=== PATIENT | female | born 1990 | race Hispanic/Latino ===

== ENCOUNTER 2017-11-28 22:40 | Emergency (ER) | payer BC, MEDICAID, OTHER ==
[2017-11-28] MEDS ORDERED: SODIUM CHLORIDE 0.9% 1000ML 2,000 ML IV ONE (23:20)
[2017-11-28] MEDS ORDERED: ONDANSETRON HCL 4 MG/2 ML VIAL ONE (23:20)
[2017-11-28 23:24] LABS: BASOPHILS % (AUTO) 0.8 % (0.0-5.0); HEMATOCRIT 46.2 % (36-48); MEAN CORPUSCULAR HEMOGLOBIN 29.3 pg (27.0-33.0); MEAN CORPUSCULAR VOLUME 86.2 fL (79-99); MONOCYTES % (AUTO) 4.6 % (3.0-13.0); NEUTROPHILS % (AUTO) 48.6 % (40.0-77.0); PLATELET COUNT (AUTO) 240 K/uL (130-400); RED BLOOD CELL COUNT(AUTO) 5.36 MIL/uL (4.00-5.50); RED CELL DISTRIBUTION WIDTH 13.1 % (11.0-15.5); WHITE BLOOD COUNT (AUTO) 12.2 K/uL (4.8-10.8)
[2017-11-28 23:36] LABS: ALANINE AMINOTRANSFERASE 55 U/L (12-78); ALBUMIN 3.5 g/dL (3.5-5.0); ASPARTATE AMINOTRANSFERASE 37 U/L (10-37); BILIRUBIN,TOTAL 0.4 mg/dL (0.2-1.0); CARBON DIOXIDE 24 mmol/L (21-32); CHLORIDE 99 mmol/L (101-111); CREATININE 1.1 mg/dL (0.5-1.5); GLOMERULAR FILTR. RATE CALC 62 mL/min (>60); LIPASE 152 U/L (114-286); POTASSIUM 3.6 mmol/L (3.5-5.1); SODIUM SERUM 135 mmol/L (136-145); TOTAL PROTEIN, SERUM 7.4 g/dL (6.0-8.3); UREA NITROGEN, BLOOD 10 mg/dL (7-18)
[2017-11-28 23:42] LABS: GLUCOSE,RANDOM 449 mg/dL (70-105)
[2017-11-28 23:47] LABS: ACETONE,BLOOD NEGATIVE (NEGATIVE)
[2017-11-29] MEDS ORDERED: POTASSIUM CHLORIDE 20 MEQ ERTAB PO ONE (00:11)
[2017-11-29] MEDS ORDERED: INSULIN HUMULIN R 100 UNIT/ML 3ML ONE (00:12)
== END 2017-11-29 02:20 | disposition home or self-care (01) ==
LOC: EDH 22:40
DX: E11.65 Type 2 diabetes mellitus with hyperglycemia (principal); E86.0 Dehydration; Z98.890 Other specified postprocedural states
CPT/HCPCS: 36415; 80053; 82009; 82948 ×2; 83690; 85025; 96361; 96374; 96375; 99284; J1815; J2405; J7030

== ENCOUNTER 2018-09-04 09:28 | Emergency (ER) | payer BC ==
[2018-09-04 09:55] LABS: APPEARANCE,URINE Clear (CLEAR); BILIRUBIN,URINE Negative (NEGATIVE); COLOR,URINE Yellow (YELLOW); GLUCOSE, URINE (UA) >=1000 mg/dL (NEGATIVE); KETONES,URINE Trace mg/dL (NEGATIVE); LEUKOCYTE ESTERASE ,URINE Negative (NEGATIVE); NITRATE,URINE Negative (NEGATIVE); OCCULT BLOOD,URINE Negative (NEGATIVE); PROTEIN,URINE Negative (NEGATIVE); UROBILINOGEN,URINE 0.2 mg/dL (0.2-1.0)
[2018-09-04 09:57] LABS: HCG,QUAL RESULT NEGATIVE (NEGATIVE)
[2018-09-04 10:07] LABS: BASOPHILS % (AUTO) 0.2 % (0.0-5.0); EOSINOPHILS % (AUTO) 2.7 % (0.0-8.0); HEMATOCRIT 48.2 % (36-48); LYMPHOCYTES % (AUTO) 42.1 % (21.0-51.0); MEAN CORPUSCULAR HEMOGLOBIN 29.5 pg (27.0-33.0); MEAN CORPUSCULAR HGB CONC 34.4 g/dL (32.0-36.0); MEAN CORPUSCULAR VOLUME 85.9 fL (79-99); MONOCYTES % (AUTO) 5.2 % (3.0-13.0); NEUTROPHILS % (AUTO) 49.8 % (40.0-77.0); NUCLEATED RED BLOOD CELLS 0.1 % (0.0-0.19); PLATELET COUNT (AUTO) 294 K/uL (130-400); RED BLOOD CELL COUNT(AUTO) 5.61 MIL/uL (4.00-5.50); RED CELL DISTRIBUTION WIDTH 13.2 % (11.0-15.5); WHITE BLOOD COUNT (AUTO) 10.2 K/uL (4.8-10.8)
[2018-09-04 10:23] LABS: CREATININE 0.8 mg/dL (0.5-1.5); POTASSIUM 3.6 mmol/L (3.5-5.1)
[2018-09-04 10:26] LABS: ALBUMIN 3.7 g/dL (3.5-5.0); BILIRUBIN,TOTAL 0.7 mg/dL (0.2-1.0); TOTAL PROTEIN, SERUM 7.9 g/dL (6.0-8.3)
[2018-09-04 10:28] LABS: BACTERIA,URINE Rare /HPF (None Seen); RBC,URINE 0-1 /HPF (0-1); WBC,URINE 0-1 /HPF (0-1)
== END 2018-09-04 15:23 | disposition home or self-care (01) ==
LOC: EDH 09:28
DX: R10.31 Right lower quadrant pain (principal); R32 Unspecified urinary incontinence; R11.0 Nausea; E11.9 Type 2 diabetes mellitus without complications; Z98.890 Other specified postprocedural states
CPT/HCPCS: 36415; 74176; 76705; 76856; 80053; 81001; 81025; 82150; 83690; 85025

== ENCOUNTER 2019-09-17 15:21 | Emergency (ER) | payer BC ==
[2019-09-17 17:04] LABS: RAPID GROUP A STREP NEGATIVE (NEGATIVE)
[2019-09-17 18:22] LABS: APPEARANCE,URINE Clear (CLEAR); BILIRUBIN,URINE Negative (NEGATIVE); COLOR,URINE Yellow (YELLOW); GLUCOSE, URINE (UA) Negative (NEGATIVE); KETONES,URINE Trace mg/dL (NEGATIVE); LEUKOCYTE ESTERASE ,URINE Negative (NEGATIVE); NITRATE,URINE Negative (NEGATIVE); OCCULT BLOOD,URINE Negative (NEGATIVE); PROTEIN,URINE Negative (NEGATIVE)
[2019-09-17 18:25] LABS: HCG,QUAL RESULT POSITIVE (NEGATIVE)
[2019-09-17] MEDS ORDERED: SODIUM CHLORIDE 0.9% 1000ML 1,000 ML IV ONE (18:59)
[2019-09-17 19:08] LABS: BASOPHILS % (AUTO) 0.4 % (0.0-5.0); EOSINOPHILS % (AUTO) 1.9 % (0.0-8.0); HEMATOCRIT 38.7 % (36-48); LYMPHOCYTES % (AUTO) 36.5 % (21.0-51.0); MEAN CORPUSCULAR HEMOGLOBIN 28.6 pg (27.0-33.0); MEAN CORPUSCULAR HGB CONC 33.7 g/dL (32.0-36.0); MEAN CORPUSCULAR VOLUME 84.6 fL (79-99); MONOCYTES % (AUTO) 4.7 % (3.0-13.0); NEUTROPHILS % (AUTO) 56.5 % (40.0-77.0); PLATELET COUNT (AUTO) 336 K/uL (130-400); RED BLOOD CELL COUNT(AUTO) 4.58 MIL/uL (4.00-5.50); WHITE BLOOD COUNT (AUTO) 10.4 K/uL (4.8-10.8)
[2019-09-17 19:18] LABS: CREATININE 0.6 mg/dL (0.5-1.5)
== END 2019-09-17 19:53 | disposition home or self-care (01) ==
LOC: EDH 15:21
DX: O99.281 Endocrine, nutritional and metabolic diseases complicating pregnancy, first trimester (principal); E86.9 Volume depletion, unspecified; E11.9 Type 2 diabetes mellitus without complications; Z3A.10 10 weeks gestation of pregnancy
CPT/HCPCS: 36415; 80048; 81003; 81025; 85025; 87804 ×2; 87880; 96360; 99285; J7030

== ENCOUNTER 2020-01-23 21:55 | Observation (INO) | payer BC ==
[~2020-01-23] VITALS: Ht 166.4 cm; Wt 95.3 kg
[2020-01-23 22:52] LABS: BILIRUBIN,URINE Negative (NEGATIVE); COLOR,URINE Yellow (YELLOW); GLUCOSE, URINE (UA) Negative (NEGATIVE); KETONES,URINE Negative (NEGATIVE); LEUKOCYTE ESTERASE ,URINE Negative (NEGATIVE); NITRATE,URINE Negative (NEGATIVE); OCCULT BLOOD,URINE Negative (NEGATIVE); PH,URINE 6.5 (5.0-8.0); PROTEIN,URINE Negative (NEGATIVE)
[2020-01-23 23:12] LABS: APPEARANCE,URINE CLEAR (CLEAR)
[2020-01-24 00:15] LABS: MEAN CORPUSCULAR HGB CONC 32.2 g/dL (32.0-36.0); MEAN CORPUSCULAR VOLUME 87.1 fL (79-99); PLATELET COUNT (AUTO) 271 K/uL (130-400); RED BLOOD CELL COUNT(AUTO) 4.25 MIL/uL (4.00-5.50); RED CELL DISTRIBUTION WIDTH 13.9 % (11.0-15.5); WHITE BLOOD COUNT (AUTO) 13.1 K/uL (4.8-10.8)
[2020-01-24 00:30] LABS: INR 0.94 (0.85-1.15); PARTIAL THROMBOPLASTIN TIME 27.9 SEC (26.3-35.5); PROTHROMBIN TIME 10.2 SEC (9.6-11.6)
[2020-01-24 00:33] LABS: PLATELET COUNT (AUTO) 271 K/uL (130-400)
[2020-01-24 01:43] LABS: D-DIMER 418 ng/mL (0-500)
== END 2020-01-24 02:03 | disposition home or self-care (01) ==
LOC: EDH 21:55 → LDH 21:56
PROVIDERS: ADMIT Specialist; ATTEND Specialist
DX: O9A.213 Injury, poisoning and certain other consequences of external causes complicating pregnancy, third trimester (principal); R10.9 Unspecified abdominal pain; Z3A.28 28 weeks gestation of pregnancy; W21.05XA Struck by basketball, initial encounter; Y93.89 Activity, other specified; Y92.89 Other specified places as the place of occurrence of the external cause; Y99.8 Other external cause status
CPT/HCPCS: 36415; 59025; 76805; 81003; 85027; 85378; 85384; 85610; 85730; 86850; 86900; 86901; 99284; G0378 ×3

== ENCOUNTER 2020-03-14 19:17 | Observation (INO) | payer BC ==
[~2020-03-14] VITALS: Ht 167.6 cm; Wt 97.5 kg
[2020-03-14 20:22] LABS: APPEARANCE,URINE CLEAR (CLEAR); BILIRUBIN,URINE NEGATIVE (NEGATIVE); COLOR,URINE YELLOW (YELLOW); GLUCOSE, URINE (UA) NEGATIVE (NEGATIVE); KETONES,URINE 15 mg/dL (NEGATIVE); LEUKOCYTE ESTERASE ,URINE NEGATIVE (NEGATIVE); NITRATE,URINE NEGATIVE (NEGATIVE); OCCULT BLOOD,URINE NEGATIVE (NEGATIVE); PROTEIN,URINE NEGATIVE (NEGATIVE); UROBILINOGEN,URINE 0.2 mg/dL (0.2-1.0)
[2020-03-14] MEDS ORDERED: ACETAMINOPHEN-CODEINE 300/30MG TAB ONE (20:46)
[2020-03-14] MEDS: LACTATED RINGERS 1000ML 1,000 ML IV PRN (20:58)
[2020-03-14] MEDS ORDERED: ACETAMINOPHEN-CODEINE 300/30MG TAB PO ONE (21:50)
[2020-03-14] MEDS ORDERED: TERBUTALINE SULFATE VIAL 1MG/ML SQ SCH (22:00)
[2020-03-14] MEDS ORDERED: TERBUTALINE SULFATE VIAL 1MG/ML SQ ONE (22:06)
[2020-03-15] MEDS: LACTATED RINGERS 1000ML 1,000 ML IV PRN (00:24)
== END 2020-03-15 07:53 | disposition home or self-care (01) ==
LOC: EDH 19:17 → LDH 20:06
PROVIDERS: ADMIT Specialist; ATTEND Specialist
DX: O62.9 Abnormality of forces of labor, unspecified (principal); O24.313 Unspecified pre-existing diabetes mellitus in pregnancy, third trimester; Z3A.36 36 weeks gestation of pregnancy
CPT/HCPCS: 81003; 82948; 96372; 99283; G0378 ×13; J3105; J7120 ×4; 96360; 96361

== ENCOUNTER 2020-03-23 10:00 | Inpatient (IN) | payer BC ==
[~2020-03-23] VITALS: Ht 165.1 cm; Wt 97.5 kg
[2020-03-27] MEDS ORDERED: LACTATED RINGERS 1000ML 1,000 ML IV SCH (07:45)
[2020-03-27] MEDS ORDERED: CEFAZOLIN SODIUM 1 GM VIAL IVP PRN (07:45)
[2020-03-27 08:27] LABS: HEMATOCRIT 42.6 % (36-48); MEAN CORPUSCULAR HEMOGLOBIN 27.5 pg (27.0-33.0); MEAN CORPUSCULAR HGB CONC 32.2 g/dL (32.0-36.0); MEAN CORPUSCULAR VOLUME 85.4 fL (79-99); RED BLOOD CELL COUNT(AUTO) 4.99 MIL/uL (4.00-5.50); WHITE BLOOD COUNT (AUTO) 11.4 K/uL (4.8-10.8)
[2020-03-27] MEDS ORDERED: ONDANSETRON HCL 4 MG/2 ML VIAL ONE (11:57)
[2020-03-27] MEDS ORDERED: OXYTOCIN 10 UNIT/1ML 10ML VIAL ONE (11:57)
[2020-03-27] MEDS ORDERED: FENTANYL CITRATE PF 50 MCG/1 ML 2ML VIAL ONE (11:58)
[2020-03-27] MEDS ORDERED: DURAMORPH PF1 MG/ML 10ML AMP IV ONE (11:58)
[2020-03-27] MEDS ORDERED: CEFAZOLIN SODIUM 1 GM VIAL IVP ONE (12:05)
[2020-03-27] MEDS ORDERED: SODIUM CHLORIDE 0.9% 10 ML VIAL IVP PRN (13:00)
[2020-03-27] MEDS ORDERED: PROMETHAZINE HCL 25 MG/ML 1ML AMPULE IM PRN (13:00)
[2020-03-27] MEDS ORDERED: OXYTOCIN-LR 20 UNITS/1000 ML 1,000 ML IV PRN (13:00)
[2020-03-27] MEDS ORDERED: MEPERIDINE-PF 75 MG/ML SYG IM PRN (13:00)
[2020-03-27] MEDS ORDERED: DiphenhydrAMINE HCL 50 MG/ML VIAL IVP PRN ×2 (13:45→17:15)
[2020-03-27] MEDS ORDERED: NALOXONE HCL 0.4 MG/1 ML ML IVP PRN ×4 (13:45→17:15)
[2020-03-27] MEDS ORDERED: ONDANSETRON HCL 4 MG/2 ML VIAL IVP PRN ×2 (13:45→17:15)
[2020-03-27] MEDS ORDERED: EPHEDRINE SULFATE 50 MG/ML AMPULE IVP PRN ×2 (13:45→17:15)
[2020-03-27 15:23] VITALS: BP 115/69
[2020-03-27] MEDS: INSULIN HUMULIN R 100 UNIT/ML 3ML SQ SCH ×2 (16:30→21:00)
[2020-03-27] MEDS: DEXTROSE 5 %-0.45 % NACL 1,000 ML IV PRN (19:05)
[2020-03-27] MEDS ORDERED: MEPERIDINE-PF 100 MG/ML SYG ONE (19:09)
[2020-03-27 19:25] VITALS: BP 117/67
--- NOTE | 2020-03-27 21:30 | NUR ---
STATUS HAS BEEN RESTING WELL. REPOSITIONED, ABD BINDER APPLIED, TOLERATED WELL Addendum: 03/28/20 at 0432 by MY DYER LVN Amended: Links added.
[2020-03-27 23:35] VITALS: BP 119/67
[2020-03-28] VITALS (8 sets, daily range): BP systolic 90–109; BP diastolic 54–68
[2020-03-28] MEDS: DEXTROSE 5 %-0.45 % NACL 1,000 ML IV PRN (01:14)
--- NOTE | 2020-03-28 05:30 | NUR ---
STATUS/MORROW CATHETERR DENIES NEED FOR PAIN MED, F/C REMOVED INTACT, TOLERATED WELL, BARB CARE GIVEN, ASSISTED PATIENT TO SIDE OF BED, DANGLED AT SIDE OF BED, TOLERATED WELL Addendum: 03/28/20 at 0551 by MY DYER LVN Amended: Links added.
--- NOTE | 2020-03-28 06:30 | NUR ---
status PATIENT VERBALIZED NEEDED TO VOID, WAS ASSISTED TO BR BY PCP, SHORTLY AFTER, PATIENT BECAME FAINT, AMMONIA USED, PATIENT ALERT, IV BOLUS GIVEN , V/S WNL, O2 SAT 100 %, ASSISTED BACK TO BED VIA W/C, ALERT, ORIENTED, V/S REMAINED WNL Addendum: 03/28/20 at 0751 by MY DYER LVN Amended: Links added.
[2020-03-28] MEDS ORDERED: AMMONIA 1 EA AMP IH ONE (06:40)
[2020-03-28 07:24] LABS: HEMATOCRIT 41.1 % (36-48); MEAN CORPUSCULAR HEMOGLOBIN 28.6 pg (27.0-33.0); MEAN CORPUSCULAR HGB CONC 32.6 g/dL (32.0-36.0); MEAN CORPUSCULAR VOLUME 87.8 fL (79-99); RED BLOOD CELL COUNT(AUTO) 4.68 MIL/uL (4.00-5.50); RED CELL DISTRIBUTION WIDTH 13.8 % (11.0-15.5)
[2020-03-28] MEDS: INSULIN HUMULIN R 100 UNIT/ML 3ML SQ SCH ×4 (07:30→21:00)
--- NOTE | 2020-03-28 07:49 | NUR ---
HOLD MORNING INSULIN AND RECHECK BLOOD SUGARS IN A FEW HOURS PER DR. FRANCES.
[2020-03-28] MEDS ORDERED: BISACODYL 10 MG SUPP.RECT RC PRN (08:00)
[2020-03-28] MEDS ORDERED: ACETAMINOPHEN EXTRA STRENGTH 500 MG TABLET PO PRN (08:00)
[2020-03-28] MEDS ORDERED: HYDROCODONE/ACETAMINOPHEN 5/325 MG TAB PO PRN (08:00)
[2020-03-28] MEDS ORDERED: ACETAMINOPHEN-CODEINE 300/30MG TAB PO PRN (08:00)
[2020-03-28] MEDS ORDERED: METF-444 PO (08:39)
[2020-03-28] MEDS ORDERED: NPH,100V SQ ×2 (08:39)
[2020-03-28] MEDS: DOCUSATE SODIUM 100 MG CAP PO SCH ×2 (08:51→20:50)
[2020-03-28] MEDS: DIPH,PERTUSS(ACELL),TET VAC/PF 0.5 ML VIAL IM SCH ×2 (08:51→23:01)
[2020-03-28] MEDS: SIMETHICONE 80 MG TAB.CHEW PO PRN ×3 (08:51→20:51)
[2020-03-28] MEDS: IBUPROFEN 800 MG TAB PO SCH ×2 (08:58→17:42)
[2020-03-28 09:11] LABS: HEPATITIS Bs ANTIGEN SCREEN P Negative (Negative)
--- NOTE | 2020-03-28 18:00 | NUR ---
DRESSING REMOVAL PT'S DRESSING REMOVED AT THIS TIME. INCISION INTACT WITH INSORBS IN PLACE. PT TOLERATED WELL. EDUCATED ON INCISIONAL CARE AND TO WASH DAILY WITH SOAP AND WATER. PT VERBALIZED UNDERSTANDING.
[2020-03-29] MEDS: IBUPROFEN 800 MG TAB PO SCH ×2 (00:20→08:22)
[2020-03-29 03:28] VITALS: BP 104/57
[2020-03-29 07:06] VITALS: BP 99/74
[2020-03-29] MEDS: INSULIN HUMULIN R 100 UNIT/ML 3ML SQ SCH (07:30)
--- NOTE | 2020-03-29 08:10 | NUR ---
PATIENT ASSESSED AND DR. FRANCES ROUNDED AT THIS TIME. INCISION ASSESSED AND NO REDNESS, EDEMA OR DRAINAGE NOTED. PATIENT DENIES ANY PROBLEMS AND DENIES ANY FURTHER DIZZINESS. DR. FRANCES GAVE ORDERS FOR DISCHARGE AND SALINE LOCK WAS REMOVED. IV SITE WNL.
[2020-03-29] MEDS: SIMETHICONE 80 MG TAB.CHEW PO PRN (08:21)
[2020-03-29] MEDS: DOCUSATE SODIUM 100 MG CAP PO SCH (08:21)
--- NOTE | 2020-03-29 10:15 | NUR ---
DISCHARGE INSTRUCTIONS GIVEN AND SCRIPT FOR TYLENOL #3 GIVEN AND INSTRUCTED ON DOSAGE AND FREQUENCY OF MED. VERBALZIED UNDERSTANDING INSTRUCTIONS GIVEN.
[2020-03-29 11:10] VITALS: BP 117/73
--- NOTE | 2020-03-29 11:35 | NUR ---
PATIENT WAS TAKEN VIA W/C TO FAMILY [facility] [employer]YING BABY IN ARMS. PATIENT STABLE AND DENIES PAIN.
== END 2020-03-29 11:35 | disposition home or self-care (01) | DRG 785 ==
LOC: LDH 03-27 05:42 → WSH 03-27 15:18
PROVIDERS: ADMIT Specialist; ATTEND Specialist
PROC: 0UB70ZZ Excision of Bilateral Fallopian Tubes, Open Approach (ICD-10-PCS; 2020-03-27)
PROC: 10D00Z1 Extraction of Products of Conception, Low, Open Approach (ICD-10-PCS; principal; 2020-03-27 07:30)
PROC: 3E0234Z Introduction of Serum, Toxoid and Vaccine into Muscle, Percutaneous Approach (ICD-10-PCS; 2020-03-28)
DX: O34.211 Maternal care for low transverse scar from previous cesarean delivery (principal); O24.424 Gestational diabetes mellitus in childbirth, insulin controlled; Z3A.38 38 weeks gestation of pregnancy; Z37.0 Single live birth; Z83.3 Family history of diabetes mellitus; Z23 Encounter for immunization
CPT/HCPCS: 36415; 59510; 82948; 85027; 86592; 86850; 86900; 86901; 87340; 90715; A4344; G0378; J0690; J2175; J2274; J2405; J2550; J2590; J3010; J3490; J7120

== ENCOUNTER 2021-04-14 14:28 | Emergency (ER) | payer BC ==
[~2021-04-14] VITALS: Ht 165.1 cm; Wt 94.8 kg
[~2021-04-14 14:28] MED LIST: METF-444 PO; NPH,100V SQ
[2021-04-14 15:03] VITALS: BP 109/70
[2021-04-14 16:00] VITALS: BP 105/66
[2021-04-14 18:49] VITALS: BP 108/66
[2021-04-14] MEDS ORDERED: NACL 0.9% 1000ML 1,000 ML IV ONE (19:15)
[2021-04-14 19:33] LABS: APPEARANCE,URINE Clear (CLEAR); BILIRUBIN,URINE Negative (NEGATIVE); COLOR,URINE Yellow (YELLOW); GLUCOSE, URINE (UA) >=1000 mg/dL (NEGATIVE); KETONES,URINE 15 mg/dL (NEGATIVE); LEUKOCYTE ESTERASE ,URINE Negative (NEGATIVE); NITRATE,URINE Negative (NEGATIVE); OCCULT BLOOD,URINE Negative (NEGATIVE); PROTEIN,URINE Negative (NEGATIVE)
[2021-04-14 19:43] LABS: BACTERIA,URINE Rare /HPF (None Seen); RBC,URINE None Seen /HPF (0-1); WBC,URINE 0-1 /HPF (0-1)
[2021-04-14 19:47] VITALS: BP 108/69
[2021-04-14 19:50] LABS: BASOPHILS % (AUTO) 0.2 % (0.0-5.0); EOSINOPHILS % (AUTO) 0.2 % (0.0-8.0); HEMATOCRIT 47.5 % (36-48); MEAN CORPUSCULAR HEMOGLOBIN 27.1 pg (27.0-33.0); MEAN CORPUSCULAR HGB CONC 32.4 g/dL (32.0-36.0); MEAN CORPUSCULAR VOLUME 83.6 fL (79-99); MONOCYTES % (AUTO) 3.7 % (3.0-13.0); NEUTROPHILS % (AUTO) 80.5 % (40.0-77.0); PLATELET COUNT (AUTO) 299 K/uL (130-400); RED BLOOD CELL COUNT(AUTO) 5.68 MIL/uL (4.00-5.50); RED CELL DISTRIBUTION WIDTH 12.9 % (11.0-15.5)
[2021-04-14 19:54] LABS: CREATININE 0.8 mg/dL (0.5-1.5); POTASSIUM 3.9 mmol/L (3.5-5.1)
[2021-04-14 19:59] LABS: ALBUMIN 3.4 g/dL (3.5-5.0); BILIRUBIN,TOTAL 0.9 mg/dL (0.2-1.0); TOTAL PROTEIN, SERUM 7.4 g/dL (6.0-8.3)
[2021-04-14] MEDS ORDERED: METOCLOPRAMIDE 10 MG/2 ML VIAL IM SCH (20:00)
[2021-04-14] MEDS ORDERED: ONDANSETRON 4MG INJ IVP SCH (20:00)
[2021-04-14] MEDS ORDERED: LACTATED RINGERS 1000ML 1,000 ML IV ONE (20:00)
[2021-04-14] MEDS ORDERED: HYDROMORPHONE 0.5 MG SYG (0.5MG/0.5ML) IVP ONE (20:15)
[2021-04-14] MEDS ORDERED: INSULIN HUMULIN R 100 UNIT/ML 3ML IV SCH (21:00)
[2021-04-14] MEDS ORDERED: NACL 0.9% 1000ML 1,000 ML IV SCH (21:00)
[2021-04-14] MEDS ORDERED: METO-296 PO (21:23)
[2021-04-14] MEDS ORDERED: ONDA4TAB10 PO (21:23)
[2021-04-14] MEDS ORDERED: PANT40TA PO (21:23)
[2021-04-14] MEDS ORDERED: INSULIN HUMULIN R 100 UNIT/ML 3ML ONE (21:37)
== END 2021-04-14 23:19 | disposition home or self-care (01) ==
LOC: EDH 14:28
DX: E86.0 Dehydration (principal); E11.65 Type 2 diabetes mellitus with hyperglycemia; R11.2 Nausea with vomiting, unspecified; R19.7 Diarrhea, unspecified; Z79.899 Other long term (current) drug therapy
CPT/HCPCS: 36415; 80053; 81001; 82948 ×2; 85025; 96361; 96372; 96374; 96375; 99285; J1170; J1815; J2405; J2765; J7030

== ENCOUNTER 2025-08-02 12:20 | Emergency (ER) | payer OTHER ==
[~2025-08-02] VITALS: Ht 165.1 cm; Wt 89.4 kg
[~2025-08-02 12:20] MED LIST changes: +METO-296 PO; +NAPR-1505 PO; +ONDA-243 PO; +PANT40TA PO
[2025-08-02 13:21] LABS: IMMATURE GRANULOCYTE ABSOLUTE 0.05 K/uL (0-1); NUCLEATED RED BLOOD CELLS 0.0 % (0.0-0.19); PLATELET COUNT (AUTO) 429 K/uL (130-400); RED BLOOD CELL COUNT(AUTO) 5.60 MIL/uL (4.00-5.50); RED CELL DISTRIBUTION WIDTH 15.7 % (11.0-15.5); WHITE BLOOD COUNT (AUTO) 12.9 K/uL (4.8-10.8)
[2025-08-02 13:30] LABS: CREATININE 0.6 mg/dL (0.5-1.0); GLOMERULAR FILTR. RATE CALC 119.0 mL/min (>90); GLUCOSE,RANDOM 183.0 mg/dL (70-105); SODIUM SERUM 132.0 mmol/L (136-145); UREA NITROGEN, BLOOD 8.0 mg/dL (7-18)
[2025-08-02 13:41] LABS: HCG,QUANTITATIVE 0.0 mIU/mL (0-5)
--- NOTE | 2025-08-02 14:01 | HMCIMG ---
EXAM: US Pelvis, Transabdominal COMPARISON: Ultrasound dated September 04, 2018. CLINICAL HISTORY: r/o torsion, hx of teratoma TECHNIQUE: Transabdominal pelvic ultrasound (complete) with image documentation. FINDINGS: ENDOMETRIUM: Measures 14 mm in thickness, within normal limits for age. UTERUS/CERVIX: The uterus measures 10.6 ??? 4.2 ??? 5.8 cm and appears within normal limits. No uterine fibroid or other mass evident. RIGHT OVARY: Measures 2.4 ??? 2.1 ??? 2.3 cm. Normal colour Doppler flow. No abnormal mass. LEFT OVARY: Measures 2.4 ??? 1.7 ??? 2.6 cm. Normal colour Doppler flow. No abnormal mass. FREE FLUID: No free fluid in the cul-de-sac. IMPRESSION: 1. No acute pelvic pathology. /[place]
--- NOTE | 2025-08-02 14:30 | NUR ---
PATIENT RETURNED FROM ULTRASOUND. PATIENT CARE ASSUMED AT THIS TIME.
[2025-08-02 14:44] LABS: APPEARANCE,URINE CLEAR (CLEAR); GLUCOSE, URINE (UA) NEGATIVE (NEGATIVE); LEUKOCYTE ESTERASE ,URINE 500 Leu/uL (NEGATIVE); NITRATE,URINE NEGATIVE (NEGATIVE); OCCULT BLOOD,URINE NEGATIVE (NEGATIVE)
[2025-08-02 14:46] LABS: ADD UA MICROSCOPIC YES
[2025-08-02] MEDS: HYDROcodone/APAP 5/325 1 TAB TABLET PO ONE (14:54)
[2025-08-02 14:55] LABS: SQUAMOUS EPITHELIAL CELL,UR RARE /HPF (0-2)
[2025-08-02] MEDS ORDERED: KETO10TA2 PO (15:06)
--- NOTE | 2025-08-02 15:06 | ERN ---
ED Note History of Present Illness Stated Complaint: PELVIC PAIN TO RIGHT SIDE Chief Complaint: Pelvic Pain Time Seen by MD: 12:21 Time Seen by Midlevel: 12:28 Dictation: 34-year-old female coming in with complaints of pelvic pain onset for the last couple of weeks worsening past week. [facility] of the abdomen and pelvis that shows possible teratoma and rule out ovarian torsion so they sent her to the ER. Patient is complaining of pain, no nausea, no vomiting, no fever, no diarrhea. No vaginal bleeding or vaginal discharge. Allergies: Coded Allergies: No Known Drug Allergies (Unverified Allergy, Unknown, 11/06/15) Home Meds Active Scripts Ketorolac Tromethamine (Ketorolac Tromethamine) 10 Mg Tablet, 1 TAB PO Q6HPRN PRN for pain for 5 Days, #20 TAB 0 Refills Prov:MIGUEL ADORNO NP 08/02/25 Naproxen (Naproxen) 375 Mg Tablet.dr, 375 MG PO BID for 7 Days, #14 TAB Prov:ROB SHARMA MD 04/20/24 Pantoprazole Sodium (Protonix) 40 Mg Tablet.dr, 40 MG PO DAILYBKFST, #10 TAB 0 Refills Prov:LILLIAN MARSHALL MD 04/14/21 Metoclopramide HCl (Reglan) 10 Mg Tablet, 10 MG PO TIDP, #20 TAB 0 Refills Prov:LILLIAN MARSHALL MD 04/14/21 Ondansetron (Ondansetron Odt) 4 Mg Tab.rapdis, 4 MG PO Q6HPRN, #20 TAB 0 Refills Prov:LILLIAN MARSHALL MD 04/14/21 Reported Medications NPH, Human Insulin Isophane (Humulin N) 100 Unit/1 Ml Vial, 20 UNITS SQ HS, VIAL 03/28/20 NPH, Human Insulin Isophane (Humulin N) 100 Unit/1 Ml Vial, 20 UNIT SQ AM, VIAL 03/28/20 Metformin HCl (Metformin HCl) 500 Mg Tablet, 500 MG PO BID, TAB 03/28/20 Past Medical History Past Medical History: Diabetes-Type II, High Cholesterol Surgical History: Other Surgical History Other: C SECTION, BTL Social History: Lives with family Review of System Dictation Constitutional: Negative for fever,chills, and weight loss Eyes: Negative for injury, pain,redness, and discharge ENT: Negative for injury,pain or swelling Cardiovascular: Negative for chest pain, palpitations, and edema Respiratory: Negative for shortness of breath, cough, and wheezing, Abdomen/GI: Complaining of pelvic pain Back: Negative for injury and pain : Negative for injury, bleeding and discharge MS/Extremity: Negative for injury and deformity Skin: Negative for rash, and discoloration Neuro: Negative for headache, weakness, numbness, tingling, and seizure Psych: Negative for suicide ideation, homicidal ideation, and hallucinations Review of Systems: was completed Initial Vital Sign VS Vital Signs Date Time Temp Pulse Resp B/P (MAP) Pulse Ox O2 Delivery O2 Flow Rate FiO2 08/02/25 12:21 98.1 109 16 119/80 100 Room Air 08/02/25 14:30 0 21 Physical Exam Dictation General: awake, alert, NAD Head/Face: Normocephalic, atraumatic Eyes: PERRL, EOMI, vision at baseline ENT: oral cavity clear, TMs clear, no signs of infection Neck: Trachea midline, supple, no nuchal rigidity Cardiovascular: RRR, normal S1/S2, No MRGs, no JVD Respiratory: CTAB, no respiratory distress, No rales or wheezes Abdomen: Soft, non-tender, non-distended, normal bowel sounds, no guarding or rebound. Skin: Warm, dry, normal turgor, no rash MS/Extremity: Pulses equal, no cyanosis, neurovascular intact, FROM Neuro: COAx4, GCS 15, strength 5/5, CN 2-12 intact, normal cerebellar exam, normal gait, Psych: Normal behavior, mood, and affect normal Results (Laboratory/Radiology) Laboratory/Radiology Laboratory Tests Test 08/02/25 13:05 08/02/25 14:33 White Blood Count 12.9 K/uL (4.8-10.8) H Red Blood Count 5.60 MIL/uL (4.00-5.50) H Hemoglobin 12.6 g/dL (12.0-16.0) Hematocrit 41.5 % (36-48) Mean Corpuscular Volume 74.1 fL (79-99) L Mean Corpuscular Hemoglobin 22.5 pg (27.0-33.0) L Mean Corpuscular Hemoglobin Concent 30.4 g/dL (32.0-36.0) L Red Cell Distribution Width 15.7 % (11.0-15.5) H Platelet Count 429 K/uL (130-400) H Mean Platelet Volume 9.2 fL (7.5-10.5) Immature Granulocyte % (Auto) 0.4 % (0-1) Neutrophils (%) (Auto) 64.7 % (40.0-77.0) Lymphocytes (%) (Auto) 30.2 % (21.0-51.0) Monocytes (%) (Auto) 3.6 % (3.0-13.0) Eosinophils (%) (Auto) 0.7 % (0.0-8.0) Basophils (%) (Auto) 0.4 % (0.0-5.0) Neutrophils # (Auto) 8.3 K/uL (1.8-7.7) H Lymphocytes # (Auto) 3.9 K/uL (1.0-4.8) Monocytes # (Auto) 0.5 K/uL (0.1-1.0) Eosinophils # (Auto) 0.09 K/uL (0.00-0.70) Basophils # (Auto) 0.05 K/uL (0.00-0.20) Absolute Immature Granulocyte (auto 0.05 K/uL (0-1) Nucleated Red Blood Cells 0.0 % (0.0-0.19) Red Blood Cell Morphology See comments Sodium Level 132 mmol/L (136-145) L Potassium Level 3.8 mmol/L (3.5-5.1) Chloride Level 99 mmol/L (101-111) L Carbon Dioxide Level 24 mmol/L (21-32) Blood Urea Nitrogen 8 mg/dL (7-18) Creatinine 0.6 mg/dL (0.5-1.0) Glomerular Filtration Rate Calc 119 mL/min (>90) Random Glucose 183 mg/dL (70-105) H Total Calcium 9.3 mg/dL (8.5-10.1) Human Chorionic Gonadotropin, Quant 0 mIU/mL (0-5) Urine Color LIGHT-YELLOW (YELLOW) Urine Appearance CLEAR (CLEAR) Urine pH 6.5 (5.0-8.0) Urine Specific [place] 1.010 (1.001-1.031) Urine Protein NEGATIVE mg/dL (NEGATIVE) Urine Glucose (UA) NEGATIVE mg/dL (NEGATIVE) Urine Ketones NEGATIVE mg/dL (NEGATIVE) Urine Occult Blood NEGATIVE (NEGATIVE) Urine Nitrate NEGATIVE (NEGATIVE) Urine Bilirubin NEGATIVE mg/dL (NEGATIVE) Urine Urobilinogen 0.2 mg/dL (0.2-1.0) Urine Leukocyte Esterase 500 [place]/uL (NEGATIVE) H Urine RBC 2-5 /HPF (0-1) H Urine WBC 11-25 /HPF (0-1) H Urine Squamous Epithelial Cells RARE /HPF (0-2) Urine Bacteria RARE /HPF (None Seen) Labs Reviewed?: Yes Ultrasound Comment: [place] [id number] [place] [id number] IMAGING REPORT Signed PATIENT: RADHA REID MR#: [id number] : 1990 SEX: F AGE: 34 LOCATION: [facility] ORDER 1222 STATUS: REG REPORT#: [id number] SERVICE 1221 REASON: r/o torsion, hx of teratoma ORDERING PHYSICIAN: MIGUEL ADORNO NP PROCEDURE: PELVCOMP - US PELVIC NON-OB COMP EXAM: US Pelvis, Transabdominal COMPARISON: Ultrasound dated September 04, 2018. CLINICAL HISTORY: r/o torsion, hx of teratoma TECHNIQUE: Transabdominal pelvic ultrasound (complete) with image documentation. FINDINGS: ENDOMETRIUM: Measures 14 mm in thickness, within normal limits for age. UTERUS/CERVIX: The uterus measures 10.6 ??? 4.2 ??? 5.8 cm and appears within normal limits. No uterine fibroid or other mass evident. RIGHT OVARY: Measures 2.4 ??? 2.1 ??? 2.3 cm. Normal colour Doppler flow. No abnormal mass. LEFT OVARY: Measures 2.4 ??? 1.7 ??? 2.6 cm. Normal colour Doppler flow. No abnormal mass. FREE FLUID: No free fluid in the cul-de-sac. IMPRESSION: 1. No acute pelvic pathology. /[place] DICTATED BY: AMANDA COTO Jr., MD DATE: 08/02/25 1500 ELECTRONICALLY SIGNED BY: AMANDA COTO Jr., MD DATE: 08/02/25 1500 ED Course ED Course Orders Procedure Category Date Status Time Cbc With Differential LAB 08/02/25 Complete 12:21 Basic Metabolic Panel LAB 08/02/25 Complete 12:21 Hcg,Quantitative LAB 08/02/25 Complete 12:21 Urinalysis Profile LAB 08/02/25 Complete 12:21 Us Pelvic Non-Ob Comp US 08/02/25 Resulted 12:21 Ketorolac PHA 08/02/25 Complete Tromethamine 15mg/Ml 12:30 Hydrocodone/Apap PHA 08/02/25 Complete 5/325 ([place] 5/325mg) 12:30 Culture Urine DEBBY 08/02/25 In Process 14:47 Ceftriaxone 1g Vial PHA 08/02/25 Complete (Rocephine 1g Inj) 15:00 Current Medications Medications (Trade) Dose Ordered Sig/Isaac Route PRN Reason Start Time Stop Time Status Last Admin Dose Admin Acetaminophen/ Hydrocodone Bitart (NORco 5/325MG) 1 tab ONCE ONCE PO 08/02/25 12:30 08/02/25 12:31 DC 08/02/25 14:54 Ceftriaxone Sodium (ROCEphine 1G INJ) 1 gm ONCE STAT IM 08/02/25 15:00 08/02/25 15:05 DC Ketorolac Tromethamine (toRADol) 15 mg ONCE ONCE IM 08/02/25 12:30 08/02/25 12:31 DC 08/02/25 14:54 Vital Signs Date Time Temp Pulse Resp B/P (MAP) Pulse Ox O2 Delivery O2 Flow Rate FiO2 08/02/25 15:41 98.2 85 20 125/73 100 Room Air* 0 21 08/02/25 14:30 98.2 93 20 127/73 100 Room Air* 0 21 08/02/25 12:21 98.1 109 16 119/80 100 Room Air Medical Decision Making MDM MDM: 34-year-old female coming in with complaints of pelvic pain onset for the last couple of weeks worsening past week. [facility] of the abdomen and pelvis that shows possible teratoma and rule out ovarian torsion so they sent her to the ER. Patient is complaining of pain, no nausea, no vomiting, no fever, no diarrhea. No vaginal bleeding or vaginal discharge. Blood work unremarkable. UA shows evidence of mild urinary tract infection. Rocephin given in the emergency room and we will discharge patient with the antibiotics. Ultrasound shows negative for ovarian torsion. Patient isn't . Educated patient CT scan is showing a possible teratoma where he needs to follow up outpatient with the OBGYN. Educated she has worsening symptoms she needs to return to the ER the has a OBGYN services. Patient verbalized understanding, answered all questions. Differential diagnosis: Ectopic , urinary tract infection, ovarian torsion Rationale: Tests considered and ordered secondary to shared decision making include: Previous outside records reviewed: Old ER visits. Risk of complication and/or morbidity or mortality of patient management: None Medications-Per medication reconciliation Need for hospitalization: Patient does not meet criteria for hospitalization. Need for emergency major/minor surgery: No There are no social concerns with this patient. Prescription drug management Prescriptions will include symptomatic care Patient's prior external medical records from other ER visits were reviewed by me as indicated. Prior testing and results from previous visits were reviewed. Prior tests were taken into account with medical decision making and resource utilization, independent historian/historians were used to obtain complete medical history. I independently interpreted the test that were performed, results were reviewed by me and considered findings on radiology if ordered. Medical management and examination interpretation discussions were had by me with other qualified healthcare professionals as indicated for the patient's care. DX & DISP Disposition: Discharge Departure Impression: Primary Impression: Pelvic pain Additional Impressions: Teratoma of ovary, UTI (urinary tract infection) Condition: Stable Scripts Ketorolac Tromethamine (Ketorolac Tromethamine) 10 Mg Tablet 1 TAB PO Q6HPRN PRN for pain for 5 Days, #20 TAB 0 Refills Prov: MIGUEL ADORNO NP 08/02/25 Additional Instructions: Please follow up with the OBGYN outpatient. Return to the ER if you have any worsening symptoms. Take Tylenol or Motrin [id number] for pain control. Referrals: SELF,REFERRAL (PCP) Time of Disposition: 15:05 I have reviewed the case, and I agree with, Diagnosis and Plan MIGUEL ADORNO NP Aug 02, 2025 15:06 KALLIE KINGSTON DO Aug 02, 2025 17:47
--- NOTE | 2025-08-02 15:35 | NUR ---
PATIENT REFUSED ROCEPHIN IM. PATIENT STATES SHE WILL SEEK ANTIBIOTIC TREATMENT FROM HER OBGYN.
[2025-08-02 15:41] VITALS: BP 125/73; PULSE 85; RESP 20; TEMP 98.2; O2SAT 100
== END 2025-08-02 15:46 | disposition home or self-care (01) ==
LOC: EDH 12:20
DX: D27.9 Benign neoplasm of unspecified ovary (principal); R10.2 Pelvic and perineal pain; N39.0 Urinary tract infection, site not specified; E11.9 Type 2 diabetes mellitus without complications; E78.00 Pure hypercholesterolemia, unspecified; Z79.84 Long term (current) use of oral hypoglycemic drugs; Z98.51 Tubal ligation status
CPT/HCPCS: 99285; 76856; 80048; 84702; 85025; 87086; 81001; 36415; 96372; J1885; J0696